=== PATIENT | male | born 1980 | race African-American/Black ===

== ENCOUNTER 2025-01-10 10:44 | Inpatient (IN) | payer OTHER ==
[2025-01-10 12:55] LABS: ABSOLUTE IMMATURE GRANULOCYTES 0.11 x10^3/uL (0.0-0.031); BASOPHILS # 0.06 x10^3/uL (0.01-0.08); EOSINOPHIL % 2.7 % (0.8-7.0); EOSINOPHILS # 0.42 x10^3/uL (0.04-0.54); HEMATOCRIT 38.8 % (40.1-51.0); HEMOGLOBIN 11.3 g/dL (13.7-17.5); MCHC 29.1 g/dl (32.3-36.5); MEAN CELL VOLUME 82.9 fl (79.0-92.2); MONOCYTE # 2.57 x10^3/uL (0.30-0.82); MONOCYTE % 16.7 % (5.3-12.2); PLATELET COUNT 251 x10^3/uL (163-337); RDW 19.1 % (12.1-15.9)
[2025-01-10 13:14] LABS: CHLORIDE 101 mmol/L (98-107); POTASSIUM 4.4 mmol/L (3.5-5.1); SODIUM 137 mmol/L (136-145)
[2025-01-10 13:16] LABS: ALBUMIN 3.7 g/dl (3.4-5.0); ANION GAP 11 mmol/L (4-13); BLOOD UREA NITROGEN 39.1 mg/dL (7-18); CALCIUM 10.2 mg/dL (8.5-10.1); CO2 25 mmol/L (21-32); GLUCOSE,RANDOM 81 mg/dL (74-106); MAGNESIUM 2.4 mg/dL (1.8-2.4)
[2025-01-10 13:19] LABS: SGPT/ALT 17 U/L (13-61)
[2025-01-10 13:20] LABS: PHOSPHOROUS 5.2 mg/dL (2.5-4.9); SGOT/AST 13 U/L (15-37)
[2025-01-10 13:21] LABS: BILIRUBIN,TOTAL 0.5 mg/dL (0.2-1); TOT PROT 7.6 g/dl (6.4-8.2)
[2025-01-10 13:22] LABS: ALK PHOS 76 U/L (45-117)
[2025-01-10 13:24] LABS: N-TERMINAL BNP 3084.3 pg/ml (5-125)
[2025-01-10 13:43] LABS: CREATININE 10.7 mg/dL (0.55-1.3)
[2025-01-10 13:43] LABS: VENOUS BASE EXCESS -2.4 mmol/L (-2-2); VENOUS O2 SATURATION 93.9 % (70-80); VENOUS PCO2 42.2 mmHg (38-52); VENOUS PH 7.355 (7.310-7.410)
[2025-01-10] MEDS ORDERED: VANCOMYCIN/WATER FOR INJ (PEG) 1,000 MG/200 ML BAG IVPB ONE (14:12)
[2025-01-10] MEDS ORDERED: PIPERACILLIN/TAZOB 3.375 GM 3.375 GM/50 ML BAG IVPB ONE (14:57)
[2025-01-10] MEDS: PIPERACILLIN/TAZOB 3.375 GM 3.375 GM in DEXTROSE 5%-WATER - 50 ML IVPB ONE (15:10)
[2025-01-10] MEDS: VANCOMYCIN/WATER FOR INJ (PEG) 1,000 MG/200 ML BAG IVPB ONE (16:46)
[2025-01-10] MEDS ORDERED: SODIUM CHLORIDE 250 ML IV PRN (17:26)
[2025-01-10] MEDS: ATORVASTATIN CA 40 MG TABLET (FP) PO SCH (21:49)
[2025-01-10] MEDS: QUEtiapine FUMARATE 100 MG TABLET (FP) PO SCH (21:49)
[2025-01-10] MEDS: ACETAMINOPHEN 325 MG TABLET (FP) PO PRN (21:55)
[2025-01-11 08:35] LABS: HEMATOCRIT 38.7 % (40.1-51.0); HEMOGLOBIN 11.5 g/dL (13.7-17.5); MCHC 29.7 g/dl (32.3-36.5); MEAN CELL VOLUME 81.6 fl (79.0-92.2); PLATELET COUNT 233 x10^3/uL (163-337); RDW 19.3 % (12.1-15.9)
[2025-01-11 09:04] LABS: CHLORIDE 100 mmol/L (98-107); POTASSIUM 4.7 mmol/L (3.5-5.1); SODIUM 135 mmol/L (136-145)
[2025-01-11 09:15] LABS: BILIRUBIN,TOTAL 0.5 mg/dL (0.2-1)
[2025-01-11 09:16] LABS: ALK PHOS 77 U/L (45-117)
[2025-01-11 09:19] LABS: ALBUMIN 3.6 g/dl (3.4-5.0); ANION GAP 14 mmol/L (4-13); BLOOD UREA NITROGEN 59.5 mg/dL (7-18); CO2 21 mmol/L (21-32); GLUCOSE,RANDOM 78 mg/dL (74-106); MAGNESIUM 2.6 mg/dL (1.8-2.4); PHOSPHOROUS 6.9 mg/dL (2.5-4.9); SGOT/AST 8 U/L (15-37); SGPT/ALT 14 U/L (13-61)
[2025-01-11 09:20] LABS: TOT PROT 7.5 g/dl (6.4-8.2)
[2025-01-11 09:21] LABS: CREATININE 13.7 mg/dL (0.55-1.3)
[2025-01-11 09:22] LABS: CALCIUM 9.8 mg/dL (8.5-10.1)
[2025-01-11] MEDS: LOSARTAN POTASSIUM 50 MG TABLET PO SCH (09:25)
[2025-01-11] MEDS: PANTOPRAZOLE 40 MG TABLET PO SCH (09:26)
[2025-01-11] MEDS: ESCITALOPRAM OXALATE 10 MG TABLET PO SCH (09:26)
[2025-01-11 11:34] LABS: HEPATITIS B SURF AG NON-MATERN NON-REACTIVE (NONREACTIVE)
[2025-01-11 12:02] LABS: HCV DIAGNOSTIC IN-HOUSE W/RFLX NON-REACTIVE (NONREACTIVE)
[2025-01-11 14:43] VITALS: RESP 18
[2025-01-12 08:23] LABS: HEMATOCRIT 38.2 % (40.1-51.0); HEMOGLOBIN 11.4 g/dL (13.7-17.5); MCHC 29.8 g/dl (32.3-36.5); MEAN CELL VOLUME 80.8 fl (79.0-92.2); RDW 18.9 % (12.1-15.9)
[2025-01-12 08:30] LABS: CHLORIDE 99 mmol/L (98-107); POTASSIUM 4.1 mmol/L (3.5-5.1); SODIUM 138 mmol/L (136-145)
[2025-01-12 08:34] LABS: ALBUMIN 3.5 g/dl (3.4-5.0); GLUCOSE,RANDOM 94 mg/dL (74-106)
[2025-01-12 08:35] LABS: ANION GAP 12 mmol/L (4-13); CALCIUM 8.9 mg/dL (8.5-10.1); CO2 28 mmol/L (21-32); MAGNESIUM 2.3 mg/dL (1.8-2.4)
[2025-01-12 08:38] LABS: PHOSPHOROUS 6.7 mg/dL (2.5-4.9); SGOT/AST 10 U/L (15-37); SGPT/ALT 16 U/L (13-61)
[2025-01-12 08:39] LABS: BILIRUBIN,TOTAL 0.5 mg/dL (0.2-1); TOT PROT 7.3 g/dl (6.4-8.2)
[2025-01-12 08:40] LABS: ALK PHOS 73 U/L (45-117)
[2025-01-12 08:45] LABS: CREATININE 10.3 mg/dL (0.55-1.3)
[2025-01-12 08:58] LABS: IRON SERUM 50 ug/dL (50-175); TOTAL IRON BINDING CAPACITY 203 ug/dL (250-450)
[2025-01-12 09:03] LABS: PLATELET COUNT 175 x10^3/uL (163-337); Reticulocyte % 2.89 % (0.51-1.81)
[2025-01-12] MEDS: NIFEdipine E.R 60 MG TABLET PO SCH (10:29)
[2025-01-12] MEDS: LABETALOL HCL 200 MG TABLET (FP) PO SCH (10:29)
[2025-01-12] MEDS: hydrALAZINE HCL 50 MG TABLET (FP) PO SCH (14:24)
[2025-01-13 08:50] LABS: HEMATOCRIT 36.5 % (40.1-51.0); HEMOGLOBIN 11.1 g/dL (13.7-17.5); MCHC 30.4 g/dl (32.3-36.5); MEAN CELL VOLUME 80.8 fl (79.0-92.2); PLATELET COUNT 188 x10^3/uL (163-337); RDW 19.2 % (12.1-15.9)
[2025-01-13 09:14] LABS: CHLORIDE 99 mmol/L (98-107); POTASSIUM 4.3 mmol/L (3.5-5.1); SODIUM 137 mmol/L (136-145)
[2025-01-13 09:24] LABS: ANION GAP 14 mmol/L (4-13); CALCIUM 8.7 mg/dL (8.5-10.1); CO2 24 mmol/L (21-32); GLUCOSE,RANDOM 158 mg/dL (74-106)
[2025-01-13 09:25] LABS: ALBUMIN 3.4 g/dl (3.4-5.0)
[2025-01-13 09:27] LABS: SGPT/ALT 17 U/L (13-61)
[2025-01-13 09:28] LABS: SGOT/AST 8 U/L (15-37)
[2025-01-13 09:29] LABS: BILIRUBIN,TOTAL 0.5 mg/dL (0.2-1); TOT PROT 7.1 g/dl (6.4-8.2)
[2025-01-13 09:30] LABS: ALK PHOS 69 U/L (45-117)
[2025-01-13 09:43] LABS: BLOOD UREA NITROGEN 69.4 mg/dL (7-18); CREATININE 13.3 mg/dL (0.55-1.3)
[2025-01-13] MEDS ORDERED: SODIUM CHLORIDE 250 ML IV PRN (12:48)
[2025-01-13 18:38] VITALS: BP 125/72; PULSE 87; TEMP 97.3
== END 2025-01-13 19:30 | disposition left against medical advice (07) | DRG 880 ==
LOC: JER 10:44 → JERBED 13:51 → INTOOBSV 13:51 → J6S 15:35 → OBSVTOIN 01-12 13:17
PROVIDERS: ADMIT Student in an Organized Health Care Education/Training Program; ATTEND Internal Medicine
PROC: 5A1D70Z Performance of Urinary Filtration, Intermittent, Less than 6 Hours Per Day (ICD-10-PCS; principal; 2025-01-11)
DX: R45.851 Suicidal ideations (principal); N18.6 End stage renal disease; I12.0 Hypertensive chronic kidney disease with stage 5 chronic kidney disease or end stage renal disease; F33.9 Major depressive disorder, recurrent, unspecified; Z59.01 Sheltered homelessness; Z99.2 Dependence on renal dialysis; D63.1 Anemia in chronic kidney disease; E78.5 Hyperlipidemia, unspecified; F12.90 Cannabis use, unspecified, uncomplicated; R45.1 Restlessness and agitation; D72.829 Elevated white blood cell count, unspecified; F41.8 Other specified anxiety disorders
CPT/HCPCS: 0241U-QW; 36415; 71045-TC-FY; 80053; 80307; 82607; 82728; 82803; 83540; 83550; 83735; 83880; 84100; 84443; 85025; 85027; 86704; 86803; 86850; 86900; 86901; 87340; 87517; 93005; 93010; 99285-25; G0378

== ENCOUNTER 2025-02-16 01:04 | Inpatient (IN) | payer OTHER ==
[2025-02-16 01:28] VITALS: BMI 20.9
[2025-02-16] MEDS ORDERED: ALBUTEROL SO4 2.5/IPRATROPIUM 0.5 INH SOL 3 ML VIAL.NEB. NEB ONE (01:49)
[2025-02-16] MEDS: ALBUTEROL SO4 2.5/IPRATROPIUM 0.5 INH SOL 3 ML VIAL.NEB. NEB ONE (02:09)
[2025-02-16 02:11] LABS: ABSOLUTE IMMATURE GRANULOCYTES 0.06 x10^3/uL (0.0-0.031); BASOPHILS # 0.03 x10^3/uL (0.01-0.08); EOSINOPHIL % 4.5 % (0.8-7.0); EOSINOPHILS # 0.53 x10^3/uL (0.04-0.54); MCHC 29.6 g/dl (32.3-36.5); MEAN CELL VOLUME 77.0 fl (79.0-92.2); MONOCYTE # 1.42 x10^3/uL (0.30-0.82); MONOCYTE % 12.0 % (5.3-12.2); RDW 19.7 % (12.1-15.9)
[2025-02-16 02:13] LABS: BG HCT 35.0 % (35.4-49); VENOUS BASE EXCESS -8.5 mmol/L (-2-2); VENOUS O2 SATURATION 82.0 % (70-80); VENOUS PCO2 37.5 mmHg (38-52); VENOUS PH 7.285 (7.310-7.410)
[2025-02-16 02:31] LABS: CO2 19 mmol/L (21-32); GLUCOSE,RANDOM 83 mg/dL (74-106)
[2025-02-16 02:34] LABS: SGOT/AST 22 U/L (15-37); SGPT/ALT 33 U/L (13-61)
[2025-02-16 02:36] LABS: TOT PROT 7.6 g/dl (6.4-8.2)
[2025-02-16 02:37] LABS: ALK PHOS 70 U/L (45-117)
[2025-02-16 02:42] LABS: CREATININE 16.9 mg/dL (0.55-1.3)
[2025-02-16] MEDS: ONDANSETRON 4 MG/2 ML VIAL IVPB ONE (02:54)
[2025-02-16] MEDS ORDERED: ONDANSETRON 4 MG/2 ML VIAL ONE (02:55)
[2025-02-16 03:25] LABS: INR 0.92 (0.83-1.09); PROTHROMBIN TIME (PATIENT) 10.0 SEC (9.7-13.0)
[2025-02-16 03:28] LABS: ACTIVATED PTT 32.2 SECONDS (25.2-36.5)
[2025-02-16 04:11] LABS: ALK PHOS 69 U/L (45-117); CO2 18 mmol/L (21-32); CREATININE 17.1 mg/dL (0.55-1.3); GLUCOSE,RANDOM 90 mg/dL (74-106); SGOT/AST 23 U/L (15-37); SGPT/ALT 32 U/L (13-61); TOT PROT 7.2 g/dl (6.4-8.2)
[2025-02-16] MEDS ORDERED: DEXTROSE 50%-WATER 25 GM/50 ML DISP.SYRIN ONE ×4 (04:58→07:47)
[2025-02-16] MEDS: INSULIN (NOVOLOG) ASPART 100 UNITS/ML 10ML VIAL SQ ONE (05:16)
[2025-02-16] MEDS: DEXTROSE 50%-WATER 25 GM/50 ML DISP.SYRIN IVPUSH ONE (05:16)
[2025-02-16] MEDS ORDERED: HEPARIN NA (PORCINE) 5,000 UNITS/ML 1ML VIAL ONE (06:08)
[2025-02-16] MEDS ORDERED: hydrALAZINE HCL 50 MG TABLET (FP) ONE (06:08)
[2025-02-16] MEDS ORDERED: PANTOPRAZOLE 40 MG TABLET PO ONE (06:08)
[2025-02-16] MEDS: hydrALAZINE HCL 50 MG TABLET (FP) PO SCH (06:16)
[2025-02-16] MEDS: HEPARIN NA (PORCINE) 5,000 UNITS/ML 1ML VIAL SQ SCH (06:16)
[2025-02-16] MEDS: PANTOPRAZOLE 40 MG TABLET PO SCH (06:16)
[2025-02-16] MEDS ORDERED: NITROGLYCERIN SUBLINGUAL 1/150 0.4 MG TAB ONE ×2 (07:06→07:10)
[2025-02-16] MEDS ORDERED: NITROGLYCERIN 2% OINTMENT - 1GM PACKET TD ONE (07:07)
[2025-02-16] MEDS: NITROGLYCERIN 50MG/D5W 250ML 50 MG/250 ML ML IVPB SCH (07:07)
[2025-02-16] MEDS ORDERED: NITROGLYCERIN 25MG/D5W 250ML 25 MG/250 ML ML IVPB ONE ×2 (07:08→07:10)
[2025-02-16] MEDS: CALCIUM GLUCONATE 10% - 1,000 MG/10 ML VIAL IVPUSH ONE (07:22)
[2025-02-16] MEDS: SODIUM BICARBONATE 8.4% 50 MEQ/50 ML DISP.SYRIN IV ONE (07:25)
[2025-02-16] MEDS ORDERED: CALCIUM GLUCONATE 10% - 1,000 MG/10 ML VIAL ONE (07:27)
[2025-02-16] MEDS ORDERED: SODIUM BICARBONATE 8.4% 50 MEQ/50 ML DISP.SYRIN ONE (07:30)
[2025-02-16] MEDS: DEXTROSE 10%-WATER - 1,000 ML IV SCH (07:40)
[2025-02-16] MEDS: DEXTROSE 50%-WATER - 25 GM/50 ML VIAL IVPUSH ONE ×2 (07:48→07:58)
[2025-02-16] MEDS: NITROGLYCERIN SUBLINGUAL 1/150 0.4 MG TAB SL ONE ×2 (07:50→07:51)
[2025-02-16] MEDS: INSULIN REGULAR HUMAN 100 UNITS/ML *VIAL IVPUSH ONE (07:58)
[2025-02-16] MEDS: SODIUM BICARBONATE 8.4% 50 MEQ/50 ML VIAL IV ONE (08:00)
[2025-02-16] MEDS ORDERED: DEXTROSE 50%-WATER - 25 GM/50 ML VIAL IVPUSH PRN (08:13)
[2025-02-16] MEDS: NITROGLYCERIN 2% OINTMENT - 1GM PACKET TD ONE (08:22)
[2025-02-16 08:23] LABS: ARTERIAL BLD GAS O2 SATURATION 95.7 % (95-98); ARTERIAL BLOOD GAS BASE EXCESS -7.6 mmol/L (-2-2); ARTERIAL BLOOD GAS PCO2 50.20 mmHg (35-45); ARTERIAL BLOOD GAS PO2 93.8 mmHg (80-100); BG HCT 35.0 % (35.4-49)
[2025-02-16 08:27] LABS: ALLENS TEST POSITIVE; PT'S TEMP BIPAP
[2025-02-16 08:28] LABS: VENT MODE S/T; VENT RATE 15
[2025-02-16] MEDS: SEVELAMER CARBONATE 800 MG TAB (FP) PO SCH (08:54)
[2025-02-16] MEDS: ESCITALOPRAM OXALATE 10 MG TABLET PO SCH (09:01)
[2025-02-16] MEDS: LOSARTAN POTASSIUM 50 MG TABLET PO SCH (09:01)
[2025-02-16] MEDS: LABETALOL HCL 200 MG TABLET (FP) PO SCH (09:01)
[2025-02-16] MEDS: NIFEdipine E.R 60 MG TABLET PO SCH (09:01)
[2025-02-16] MEDS ORDERED: SODIUM CHLORIDE 250 ML IV PRN ×2 (09:22→13:07)
[2025-02-16] MEDS: MUPIROCIN 2% TOPICAL OINTMENT FOR DECOLONIZATION NS SCH (10:05)
[2025-02-16 10:58] LABS: ABSOLUTE IMMATURE GRANULOCYTES 0.06 x10^3/uL (0.0-0.031); BASOPHILS # 0.04 x10^3/uL (0.01-0.08); EOSINOPHIL % 0.8 % (0.8-7.0); EOSINOPHILS # 0.10 x10^3/uL (0.04-0.54); MCHC 29.1 g/dl (32.3-36.5); MEAN CELL VOLUME 77.6 fl (79.0-92.2); MONOCYTE # 1.10 x10^3/uL (0.30-0.82); MONOCYTE % 8.6 % (5.3-12.2); RDW 19.7 % (12.1-15.9)
[2025-02-16 11:18] LABS: CO2 21 mmol/L (21-32); GLUCOSE,RANDOM 130 mg/dL (74-106)
[2025-02-16 11:21] LABS: SGOT/AST 21 U/L (15-37); SGPT/ALT 30 U/L (13-61)
[2025-02-16 11:22] LABS: TOT PROT 7.1 g/dl (6.4-8.2)
[2025-02-16 11:23] LABS: ALK PHOS 72 U/L (45-117)
[2025-02-16 11:28] LABS: CREATININE 17.8 mg/dL (0.55-1.3)
[2025-02-16] MEDS: CEFTRIAXONE 1 GM in DEXTROSE 5%-WATER - 50 ML IVPB SCH (12:35)
[2025-02-16] MEDS: QUEtiapine FUMARATE 100 MG TABLET (FP) PO ONE (12:36)
[2025-02-16] MEDS: AZITHROMYCIN IVPB 500 MG/250 ML BAG IVPB ONE (13:13)
[2025-02-16] MEDS ORDERED: fentaNYL CITRATE 250 MCG/5 ML VIAL ONE (14:28)
[2025-02-16] MEDS: FENTANYL CITRATE/PF 50 MCG/ML VIAL IVPUSH ONE (15:16)
[2025-02-16] MEDS: HEPARIN NA (PORCINE) 5,000 UNITS/ML 1ML VIAL IVPUSH ONE (15:16)
[2025-02-16 15:25] LABS: HEPATITIS B SURF AG NON-MATERN NON-REACTIVE (NONREACTIVE)
[2025-02-16] MEDS: QUEtiapine FUMARATE 100 MG TABLET (FP) PO SCH (21:19)
[2025-02-16] MEDS: ATORVASTATIN CA 40 MG TABLET (FP) PO SCH (21:19)
[2025-02-16] MEDS: CHLORHEXIDINE GLUCONATE 4% CLEANSER FOR DECOLONIZATION TP SCH (21:20)
[2025-02-17 06:52] LABS: BASOPHILS # 0.02 x10^3/uL (0.01-0.08); EOSINOPHIL % 1.1 % (0.8-7.0); EOSINOPHILS # 0.12 x10^3/uL (0.04-0.54)
[2025-02-17 06:54] LABS: ABSOLUTE IMMATURE GRANULOCYTES 0.03 x10^3/uL (0.0-0.031); IMMATURE PLATELET FRACTION # 3.40 x10^3/uL; MCHC 30.5 g/dl (32.3-36.5); MEAN CELL VOLUME 75.3 fl (79.0-92.2); MONOCYTE # 1.67 x10^3/uL (0.30-0.82); MONOCYTE % 15.7 % (5.3-12.2); RDW 19.6 % (12.1-15.9)
[2025-02-17 07:26] LABS: CO2 30 mmol/L (21-32); GLUCOSE,RANDOM 113 mg/dL (74-106)
[2025-02-17 07:28] LABS: INR 1.08 (0.83-1.09); PROTHROMBIN TIME (PATIENT) 11.9 SEC (9.7-13.0)
[2025-02-17 07:29] LABS: SGOT/AST 11 U/L (15-37); SGPT/ALT 22 U/L (13-61)
[2025-02-17 07:30] LABS: TOT PROT 6.1 g/dl (6.4-8.2)
[2025-02-17 07:31] LABS: ALK PHOS 55 U/L (45-117)
[2025-02-17 07:32] LABS: CREATININE 11.5 mg/dL (0.55-1.3)
[2025-02-17] MEDS: DOXYCYCLINE INJECTION 100 MG in DEXTROSE 5%-WATER 100 ML IVPB SCH ×2 (12:55→22:24)
[2025-02-17] MEDS: HEPARIN NA (PORCINE) 5,000 UNITS/ML 1ML VIAL SQ SCH (13:03)
[2025-02-17] MEDS: ACETAMINOPHEN 500 MG TABLET (FP) PO ONE (13:42)
[2025-02-17] MEDS: ONDANSETRON 4 MG/2 ML VIAL IVPUSH ONE (13:42)
[2025-02-17] MEDS ORDERED: SODIUM CHLORIDE 250 ML IV PRN (14:22)
[2025-02-17] MEDS ORDERED: DEXTROSE 50%-WATER - 25 GM/50 ML VIAL IVPUSH PRN (16:38)
[2025-02-17] MEDS: SEVELAMER CARBONATE 800 MG TAB (FP) PO SCH (17:32)
[2025-02-17] MEDS: QUEtiapine FUMARATE 100 MG TABLET (FP) PO SCH (22:23)
[2025-02-17] MEDS: hydrALAZINE HCL 50 MG TABLET (FP) PO SCH (22:23)
[2025-02-17] MEDS: ATORVASTATIN CA 40 MG TABLET (FP) PO SCH (22:23)
[2025-02-17] MEDS: NIFEdipine E.R 60 MG TABLET PO SCH (22:24)
[2025-02-17] MEDS: LABETALOL HCL 200 MG TABLET (FP) PO SCH (22:24)
[2025-02-17] MEDS ORDERED: DEXTROSE 50%-WATER 25 GM/50 ML DISP.SYRIN IVPUSH PRN (23:50)
[2025-02-18] MEDS: ACETAMINOPHEN 325 MG TABLET (FP) PO PRN (05:47)
[2025-02-18] MEDS: PANTOPRAZOLE 40 MG TABLET PO SCH (07:50)
[2025-02-18 08:41] LABS: BASOPHILS # 0.03 x10^3/uL (0.01-0.08); RDW 19.5 % (12.1-15.9)
[2025-02-18 08:43] LABS: ABSOLUTE IMMATURE GRANULOCYTES 0.04 x10^3/uL (0.0-0.031); EOSINOPHIL % 3.6 % (0.8-7.0); EOSINOPHILS # 0.36 x10^3/uL (0.04-0.54); IMMATURE PLATELET FRACTION # 4.10 x10^3/uL; MCHC 30.1 g/dl (32.3-36.5); MEAN CELL VOLUME 74.9 fl (79.0-92.2); MONOCYTE # 1.60 x10^3/uL (0.30-0.82); MONOCYTE % 16.0 % (5.3-12.2)
[2025-02-18 09:51] LABS: ALK PHOS 48 U/L (45-117)
[2025-02-18 10:01] LABS: CO2 26 mmol/L (21-32); GLUCOSE,RANDOM 112 mg/dL (74-106)
[2025-02-18 10:04] LABS: SGOT/AST 10 U/L (15-37); SGPT/ALT 17 U/L (13-61)
[2025-02-18 10:05] LABS: TOT PROT 6.3 g/dl (6.4-8.2)
[2025-02-18 10:22] LABS: CREATININE 13.7 mg/dL (0.55-1.3)
[2025-02-18] MEDS: EPOETIN ALFA-EPBX 10,000 UNIT/ML VIAL IVPUSH ONE (11:13)
[2025-02-18] MEDS: CEFTRIAXONE 1 GM in DEXTROSE 5%-WATER - 50 ML IVPB SCH (12:14)
[2025-02-18] MEDS: LOSARTAN POTASSIUM 50 MG TABLET PO SCH (12:18)
[2025-02-18] MEDS: ESCITALOPRAM OXALATE 10 MG TABLET PO SCH (15:39)
[2025-02-19 11:50] LABS: ABSOLUTE IMMATURE GRANULOCYTES 0.02 x10^3/uL (0.0-0.031); BASOPHILS # 0.01 x10^3/uL (0.01-0.08)
[2025-02-19 11:51] LABS: EOSINOPHIL % 3.5 % (0.8-7.0); EOSINOPHILS # 0.18 x10^3/uL (0.04-0.54); IMMATURE PLATELET FRACTION # 3.50 x10^3/uL; MCHC 29.3 g/dl (32.3-36.5); MEAN CELL VOLUME 76.0 fl (79.0-92.2); MONOCYTE # 0.36 x10^3/uL (0.30-0.82); MONOCYTE % 7.0 % (5.3-12.2); RDW 19.3 % (12.1-15.9)
[2025-02-19] MEDS ORDERED: EPOETIN ALFA-EPBX 10,000 UNIT/ML VIAL IVPUSH ONE (12:00)
[2025-02-19] MEDS ORDERED: SODIUM CHLORIDE 250 ML IV PRN (12:00)
[2025-02-19 12:12] LABS: CO2 31.0 mmol/L (21-32); GLUCOSE,RANDOM 156.0 mg/dL (74-106)
[2025-02-19 12:16] LABS: CREATININE 6.9 mg/dL (0.55-1.3)
[2025-02-19 15:01] VITALS: BP 160/95; PULSE 90; RESP 18; TEMP 97.5
== END 2025-02-19 18:26 | disposition home or self-care (01) | DRG 189 ==
LOC: JER 01:04 → JERBED 03:59 → JICU 08:30 → J6S 02-17 15:54
PROVIDERS: ADMIT Student in an Organized Health Care Education/Training Program; ATTEND Internal Medicine
PROC: 06HN33Z Insertion of Infusion Device into Left Femoral Vein, Percutaneous Approach (ICD-10-PCS; principal; 2025-02-16)
PROC: B54CZZA Ultrasonography of Left Lower Extremity Veins, Guidance (ICD-10-PCS; 2025-02-16)
PROC: 5A1D70Z Performance of Urinary Filtration, Intermittent, Less than 6 Hours Per Day (ICD-10-PCS; 2025-02-16)
DX: J81.0 Acute pulmonary edema (principal); J96.01 Acute respiratory failure with hypoxia; N18.6 End stage renal disease; J18.9 Pneumonia, unspecified organism; E87.20 Acidosis, unspecified; Z59.00 Homelessness unspecified; I12.0 Hypertensive chronic kidney disease with stage 5 chronic kidney disease or end stage renal disease; I10 Essential (primary) hypertension; E78.5 Hyperlipidemia, unspecified; F32.A Depression, unspecified; F51.9 Sleep disorder not due to a substance or known physiological condition, unspecified; Z91.51 Personal history of suicidal behavior; Z99.2 Dependence on renal dialysis; E87.5 Hyperkalemia; I16.0 Hypertensive urgency; F41.9 Anxiety disorder, unspecified; F12.90 Cannabis use, unspecified, uncomplicated; E16.2 Hypoglycemia, unspecified; D64.9 Anemia, unspecified
CPT/HCPCS: 36415; 36600; 71045-TC-FY; 80048; 80053; 82803; 82962; 83605; 83735; 84100; 84484; 85025; 85610; 85730; 86704; 87040; 87340; 87517; 87637-QW; 93005; 93010; 93990-TC; 94660; 99285-25; Q5106